=== PATIENT | female | born 1985 | race Caucasian/White ===

== ENCOUNTER 2024-12-15 18:01 | Emergency (ER) | payer MEDICAID ==
[~2024-12-15] VITALS: Ht 154.9 cm; Wt 71.0 kg
[2024-12-15 18:14] VITALS: O2SAT 100
[2024-12-15 18:57] LABS: CLARITY URINE CLEAR (CLEAR); GLUCOSE URINE NEGATIVE (NEGATIVE); KETONES URINE NEGATIVE (NEGATIVE); LEUKOCYTE ESTERASE URINE NEGATIVE (NEGATIVE); NITRITE URINE NEGATIVE (NEGATIVE); OCCULT BLOOD URINE TRACE (NEGATIVE); PH URINE 6.0 (4.5-8.0); PROTEIN URINE NEGATIVE (NEGATIVE); SPECIFIC GRAVITY URINE 1.018 (1.005-1.030); UROBILINOGEN URINE 0.2 E.U./dL (0.2-1.0)
[2024-12-15 19:12] LABS: BASOPHILS % 0.5 % (0.0-2.0); EOSINOPHILS % 1.3 % (0.0-5.0); HEMATOCRIT. 39.2 % (36.0-48.0); HEMOGLOBIN. 12.9 g/dL (12.0-16.0); LYMPHOCYTES % 29.3 % (20.0-50.0); MEAN PLATELET VOLUME 9.5 fl (7.4-10.4); MONOCYTES % 6.5 % (2.0-8.0); NEUTROPHILS % 62.4 % (40.0-76.0); PLATELET 258 x1000/uL (130-400); RED BLOOD CELL COUNT 4.13 mill/uL (4.2-5.4); RED CELL DISTRIBUTION WIDTH 13.2 % (11.6-14.6)
[2024-12-15 19:18] LABS: COLOR URINE STRAW (YELLOW)
[2024-12-15 19:19] LABS: BACTERIA URINE NONE SEEN; RBC URINE NONE SEEN /hpf (0-2); SQUAMOUS EPITHELIAL CELL URINE 1+ /lpf (RARE/1+); WBC URINE 0-2 /hpf (0-2)
[2024-12-15 19:24] LABS: CREATININE 0.7 mg/dL (0.6-1.0)
[2024-12-15 19:25] LABS: UREA NITROGEN BLOOD 11 mg/dL (9-23)
[2024-12-15 21:23] LABS: ASPARTATE AMINOTRANSFERASE 65 IU/L (<34); BILIRUBIN DIRECT < 0.1 mg/dL (<=3.0); BILIRUBIN TOTAL 0.2 mg/dL (0.1-1.0); HCG SCREEN NEGATIVE; PROTEIN TOTAL 7.3 g/dL (6.0-8.3)
[2024-12-15] MEDS: IOHEXOL-300 100 ML BOTTLE ONE (23:53)
[2024-12-16] MEDS: MORPHINE SULFATE 2 MG/ML INJ (NOT FOR IM USE) IV ONE (00:23)
[2024-12-16 01:42] VITALS: BP 116/75; PULSE 78; RESP 13; TEMP 37.1; O2SAT 99
== END 2024-12-16 01:44 | disposition home or self-care (01) ==
LOC: ER 18:01
DX: R10.84 Generalized abdominal pain (principal); E11.9 Type 2 diabetes mellitus without complications; I10 Essential (primary) hypertension; Z90.49 Acquired absence of other specified parts of digestive tract; Z98.890 Other specified postprocedural states
CPT/HCPCS: 99285; 74177; 80076; 80048; 81003; 84703; 83690; 85025; 36415; 96374; Q9967; J2270